=== PATIENT | female | born 1970 | race Caucasian/White ===

== ENCOUNTER → 2017-06-20 | Outpatient (CLI) | payer BC, OTHER ==
[~2017-06-20] MED LIST: AMOXICILLIN875 MG PO; FLONASE 0.05%50 MCG NASAL; IBUPROFEN 800800 MG PO; TYLENOL COLD H1 EACH PO
== END ==
LOC: RAD 10:36
DX: Z12.31 Encounter for screening mammogram for malignant neoplasm of breast (principal)

== ENCOUNTER → 2018-12-04 | Outpatient (CLI) | payer BC, OTHER | LOC: RAD 14:21 | DX: Z12.31 Encounter for screening mammogram for malignant neoplasm of breast (principal) ==